=== PATIENT | male | born 1985 | race African-American/Black ===

== ENCOUNTER 2016-12-26 15:36 | Observation (INO) | payer OTHER ==
[2016-12-26] MEDS ORDERED: Sodium Chloride 0.9% 3,000 ML IV STA (16:16)
--- NOTE | 2016-12-26 16:29 | ED PDOC ---
HPI: General Adult Time Seen by Provider: 12/26/16 16:26 Chief Complaint (Nursing): Dizziness/Lightheaded Chief Complaint (Provider): headache/vomiting History Per: Patient (31 y/o male with post-epidural headache 6 days after epidural for back pain. Patient notes headache worse with sitting up and associated with vomiting. Denies any fevers/chills. Sent to ED by Dr. Garcia for bloodwork/fluids/pain medication and possible bloodpatch.) Past Medical History Reviewed: Historical Data, Nursing Documentation, Vital Signs Vital Signs: Last Vital Signs Temp 98.8 F 12/26/16 16:08 Pulse 76 12/26/16 16:08 Resp 20 12/26/16 16:08 BP 125/72 12/26/16 16:08 Pulse Ox 100 12/26/16 16:29 - Family History Family History: States: No Known Family Hx - Allergies Allergies/Adverse Reactions: Allergies Allergy/AdvReac Type Severity Reaction Status Date / Time No Known Allergies Allergy Verified 12/26/16 16:07 Review of Systems ROS Statement: Except As Marked, All Systems Reviewed And Found Negative Neurological: Positive for: Headache Physical Exam - Reviewed Nursing Documentation Reviewed: Yes Vital Signs Reviewed: Yes - Physical Exam Appears: Positive for: Well, Non-toxic, No Acute Distress Head Exam: Positive for: ATRAUMATIC, NORMAL INSPECTION, NORMOCEPHALIC Skin: Positive for: Normal Color, Warm, DRY Eye Exam: Positive for: EOMI, Normal appearance, PERRL ENT: Positive for: Normal ENT Inspection Neck: Positive for: Normal, Painless ROM Cardiovascular/Chest: Positive for: Regular Rate, Rhythm Respiratory: Positive for: CNT, Normal Breath Sounds Gastrointestinal/Abdominal: Positive for: Normal Exam, Bowel Sounds, Soft Back: Positive for: Normal Inspection Extremity: Positive for: Normal ROM Neurologic/Psych: Positive for: Alert, Oriented - Laboratory Results Result Diagrams: 12/26/16 16:35 12/26/16 17:20 - ECG O2 Sat by Pulse Oximetry: 100 - Progress ED Course And Treament: d/w Dr. Garcia upon patient's arrival plan of care. Will start on fluid hydration and pain medication. Will give one dose neurontin. Patient to be evaluated by Dr. Rizo or Dr. Garcia today. Zofran 4mg iv x 1 dose NS 3 liters given Neurontin 300 mg x 1 dose as d/w Dr. Garcia Morphine 2 mg iv x 1 dose as d/w Dr. Garcia seen by Dr. Garcia d/w Dr. Mccauley. Admitted to med/surg for bloodpatch tomorrow. Disposition - Clinical Impression Clinical Impression: Headache - Patient ED Disposition Is Patient to be Admitted: Yes - Disposition Disposition Time: 20:07 Condition: FAIR - Pt Status Changed To: Hospital Disposition Of: Inpatient - Admit Certification Admit to Inpatient:: After my assessment, the patient will require hospitalization for at least two midnights. This is because of the severity of symptoms shown, intensity of services needed, and/or the medical risk in this patient being treated as an outpatient.
[2016-12-26 17:33] LABS: BASO % 0.3 % (0.0-2.0); EOS # 0.1 K/uL (0.0-0.7); EOS % 0.9 % (0.0-4.0); HEMATOCRIT 47.4 % (35.0-51.0); LYMPH % 20.6 % (20.0-40.0); MEAN CORPUSCULAR HEMOGLOBIN 30.6 pg (27.0-31.0); MEAN CORPUSCULAR HGB CONC 33.6 g/dL (33.0-37.0); MEAN PLATELET VOLUME 7.6 fl (7.2-11.7); MONO # 1.1 K/uL (0.0-0.8); NEUT # 6.6 K/uL (1.8-7.0); NEUT % 67.2 % (50.0-75.0); NRBC % 0.1 % (0.0-0.0); RED CELL DISTRIBUTION WIDTH 13.5 % (11.5-14.5); WHITE BLOOD COUNT 9.7 K/uL (4.8-10.8)
[2016-12-26 17:50] LABS: BLOOD UREA NITROGEN 17 mg/dl (9-20); CARBON DIOXIDE 26 mmol/L (22-30); CHLORIDE 100 mmol/L (98-107); GFR AFRICAN-AMERICAN > 60; GLUCOSE,RANDOM 86 mg/dL (75-110); POTASSIUM 4.1 MMOL/L (3.6-5.0); SODIUM 140 mmol/l (132-148)
[2016-12-26 18:11] LABS: PARTIAL THROMBOPLASTIN TIME 27.1 Seconds (25.6-37.1)
--- NOTE | 2016-12-26 19:52 | CP.PCM.CON ---
History of Present Illness - History of Present Illness History of Present Illness: Patient is s/p cervical epidural steroid injection last Friday and now has a likely post-dura puncture headache. Headache is positional, and associated with nausea and photophobia. Despite fluid therapy and caffeine treatment at home, the pain has continued to be severe. Since being in the ER, morphine and Zofran helped but he still cannot tolerate being upright. When laying supine, he has no symptoms. R/B/A of conservative therapy vs epidural blood patch was discussed with the patient, and patient elected for intervention. Past Patient History - Past Social History Smoking Status: Never Smoked - MUSCULOSKELETAL/RHEUMATOLOGICAL Hx Back Pain: Yes - GASTROINTESTINAL Hx Gastritis: Yes - GENITOURINARY/GYNECOLOGICAL Hx Genitourinary Disorders: No - PSYCHIATRIC Hx Psychophysiologic Disorder: No Hx Substance Use: No - SURGICAL HISTORY Hx Surgeries: No - ANESTHESIA Hx Anesthesia: No Meds Allergies/Adverse Reactions: Allergies Allergy/AdvReac Type Severity Reaction Status Date / Time No Known Allergies Allergy Verified 12/26/16 16:07 Physical Exam - Constitutional Appears: Non-toxic - Neck Exam Neck exam: Positive for: Tenderness - Respiratory Exam Respiratory Exam: NORMAL BREATHING PATTERN - Cardiovascular Exam Cardiovascular Exam: REGULAR RHYTHM - GI/Abdominal Exam GI & Abdominal Exam: Normal Bowel Sounds Results - Vital Signs Recent Vital Signs: Last Vital Signs Temp 98.8 F 12/26/16 16:08 Pulse 76 12/26/16 16:08 Resp 20 12/26/16 16:08 BP 125/72 12/26/16 16:08 Pulse Ox 100 12/26/16 16:29 - Labs Result Diagrams: 12/26/16 16:35 12/26/16 17:20 Labs: Laboratory Results - last 24 hr 12/26/16 12/26/16 12/26/16 16:35 17:20 17:20 WBC 9.7 RBC 5.20 Hgb 15.9 Hct 47.4 MCV 91.0 MCH 30.6 MCHC 33.6 RDW 13.5 Plt Count 236 MPV 7.6 Neut % (Auto) 67.2 Lymph % (Auto) 20.6 [place] % (Auto) 11.0 H Eos % (Auto) 0.9 Baso % (Auto) 0.3 Neut # 6.6 Lymph # 2.0 [place] # 1.1 H Eos # 0.1 Baso # 0.0 PT 12.7 INR 1.1 APTT 27.1 Sodium 140 Potassium 4.1 Chloride 100 Carbon Dioxide 26 Anion Gap 18 BUN 17 Creatinine 0.7 L Est GFR ( Amer) > 60 Est GFR (Non-Af Amer) > 60 Random Glucose 86 Calcium 10.0 Assessment & Plan - Assessment and Plan (Free Text) Assessment: 31 yo man w/ likely post-dura puncture headache, he's s/p cervical epidural steroid injection last Friday. He has failed conservative therapy at home and will undergo blood patch intervention tomorrow. Labs are WNL, symptoms are purely positional, and MS is at baseline. He is non-toxic and there is no need for infectious workup unless the clinical picture changes. - hold any anticoagulation - IV fluid, 125cc/hr - patient doesn't need to be NPO - for likely cervical epidural blood patch under fluoro guidance in AM
--- NOTE | 2016-12-26 20:29 | CP.PCM.HP ---
History of Present Illness - History of Present Illness History of Present Illness: PCP: Maryan Bennett MD Anaesthiologist: April Church Chief Complaint: Headache/vomiting HPI: 31 years old male with hx of upper back pain due to pinched nerve now Post Operation day 5 of Cervical epidural. He comes with 6 days of persistent headaches worse of sitting up, vomiting and dizziness, lightheadedness. No fever , cough, SOB, chest pain palpitation, dysuria nor diarrhea. He was sent to the ED by Dr Garcia for further evaluation and management. after treatment with Analgesics and antiemetics in the ED the patient's headache persists. PMH: Pinched nerve Cervical Spine; GERD; Gastritis PSH: Cervical Epidural 02/03 SH: Never smoked; no alcohol; no illegal drugs; Live with family; works in [employer] FH: No known family History Allergies: NKDA Present on Admission - Present on Admission Any Indicators Present on Admission: No History of DVT/PE: No History of Uncontrolled Diabetes: No Urinary Catheter: No Decubitus Ulcer Present: No Review of Systems - Constitutional Constitutional: Headache. absent: Anorexia, Chills, Fatigue, Fever, Lethargy, Weakness - EENT Eyes: Requires Corrective Lenses. absent: Blurred Vision, Diplopia, Floaters, Sees Flashes Ears: absent: Decreased Hearing, Ear Discharge, Ear Pain, Tinnitus Nose/Mouth/Throat: absent: Epistaxis, Nasal Congestion, Nasal Discharge - Cardiovascular Cardiovascular: absent: Chest Pain, Dyspnea, Edema - Respiratory Respiratory: absent: Cough, Dyspnea, Wheezing, Chest Congestion - Gastrointestinal Gastrointestinal: Nausea, Vomiting. absent: Abdominal Pain, Constipation, Diarrhea - Genitourinary Genitourinary: absent: Dysuria, Flank Pain, Hematuria, Pyuria - Musculoskeletal Musculoskeletal: absent: Arthralgias, Back Pain, Muscle Weakness, Myalgias - Integumentary Integumentary: absent: Pruritus, Rash, Skin Ulcer, Sores, Striae, Swelling - Neurological Neurological: Dizziness, Headaches. absent: Focal Weakness, Frequent Falls, Loss of Vision - Psychiatric Psychiatric: absent: Anxiety, Depression, Panic Attacks - Endocrine Endocrine: absent: Palpitations, Polydipsia, Polyphagia, Polyuria - Hematologic/Lymphatic Hematologic: absent: Easy Bleeding, Easy Bruising Past Patient History - Past Social History Smoking Status: Never Smoked Chewing Tobacco Use: No Cigar Use: No Alcohol: None Drugs: Denies Home Situation {Lives}: With Family - CARDIAC Hx Cardiac Disorders: No - PULMONARY Hx Respiratory Disorders: No - NEUROLOGICAL Hx Neurological Disorder: No - HEENT Hx HEENT Problems: No - RENAL Hx Chronic Kidney Disease: No - HEMATOLOGICAL/ONCOLOGICAL Hx Blood Disorders: No - INTEGUMENTARY Hx Dermatological Problems: No - MUSCULOSKELETAL/RHEUMATOLOGICAL Hx Back Pain: Yes - GASTROINTESTINAL Hx Gastritis: Yes Hx Gastroesophageal Reflux: Yes - GENITOURINARY/GYNECOLOGICAL Hx Genitourinary Disorders: No - PSYCHIATRIC Hx Psychophysiologic Disorder: No Hx Substance Use: No - SURGICAL HISTORY Hx Surgeries: Yes Other/Comment: Cervical epidural - ANESTHESIA Hx Anesthesia: No Meds Allergies/Adverse Reactions: Allergies Allergy/AdvReac Type Severity Reaction Status Date / Time No Known Allergies Allergy Verified 12/26/16 16:07 Physical Exam - Constitutional Appears: No Acute Distress - Head Exam Head Exam: ATRAUMATIC, NORMAL INSPECTION, NORMOCEPHALIC - Eye Exam Eye Exam: EOMI, Normal appearance Pupil Exam: NORMAL ACCOMODATION, PERRL - ENT Exam ENT Exam: Mucous Membranes Moist, Normal Exam, Normal External Ear Exam, Normal Oropharynx - Neck Exam Neck exam: Positive for: Full Rom, Normal Inspection. Negative for: Lymphadenopathy, Tenderness - Respiratory Exam Respiratory Exam: Clear to Auscultation Bilateral. absent: Rales, Rhonchi, Wheezes - Cardiovascular Exam Cardiovascular Exam: REGULAR RHYTHM, RRR, +S1, +S2. absent: Gallop, JVD - GI/Abdominal Exam GI & Abdominal Exam: Normal Bowel Sounds, Soft. absent: Mass, Organomegaly, Tenderness - Rectal Exam Rectal Exam: Deferred - Extremities Exam Extremities exam: Positive for: full ROM, normal inspection. Negative for: calf tenderness, joint swelling, pedal edema - Back Exam Back exam: NORMAL INSPECTION. absent: CVA tenderness (L), CVA tenderness (R) - Neurological Exam Neurological exam: Alert, CN II-XII Intact, Oriented x3, Reflexes Normal - Psychiatric Exam Psychiatric exam: Normal Affect, Normal Mood - Skin Skin Exam: Dry, Intact, Normal Color, Warm Results - Vital Signs Recent Vital Signs: Last Vital Signs Temp 98.4 F 12/26/16 20:07 Pulse 59 L 12/26/16 20:07 Resp 17 12/26/16 20:07 BP 130/87 12/26/16 20:07 Pulse Ox 100 12/26/16 20:07 - Labs Result Diagrams: 12/26/16 16:35 12/26/16 17:20 Labs: Laboratory Results - last 24 hr 12/26/16 12/26/16 12/26/16 16:35 17:20 17:20 WBC 9.7 RBC 5.20 Hgb 15.9 Hct 47.4 MCV 91.0 MCH 30.6 MCHC 33.6 RDW 13.5 Plt Count 236 MPV 7.6 Neut % (Auto) 67.2 Lymph % (Auto) 20.6 [place] % (Auto) 11.0 H Eos % (Auto) 0.9 Baso % (Auto) 0.3 Neut # 6.6 Lymph # 2.0 [place] # 1.1 H Eos # 0.1 Baso # 0.0 PT 12.7 INR 1.1 APTT 27.1 Sodium 140 Potassium 4.1 Chloride 100 Carbon Dioxide 26 Anion Gap 18 BUN 17 Creatinine 0.7 L Est GFR ( Amer) > 60 Est GFR (Non-Af Amer) > 60 Random Glucose 86 Calcium 10.0 Assessment & Plan - Assessment and Plan (Free Text) Assessment: #. Post Epidural Headaches #. GERD Plan: 31 years old male with hx of upper back pain due to pinched nerve now Post Operation day 5 of Cervical epidural, comes with 6 days of persistent headaches worse of sitting up, vomiting and dizziness, lightheadedness starting after epidural. #. Post epidural Headaches - Consult Dr Church, April Anesthesiologist - NPO after midnight for possible intervention - Zofran - Morphine #. GERD with Gastritis - Pepcid #. DVT prophylaxis with SCD #. Code status: Full - Date & Time Date: 12/26/16 Time: 20:29
[2016-12-27 00:38] VITALS: O2SAT 98
[2016-12-27 08:16] VITALS: BP 115/74; PULSE 64; RESP 18; TEMP 97.7
--- NOTE | 2016-12-27 11:38 | CP.PCM.DIS ---
Provider - Provider Date of Admission: 12/26/16 20:08 Attending physician: Cali Mccauley Primary care physician: Dr Bennett Consults: Ansethesia: Dr Garcia Time Spent in preparation of Discharge (in minutes): 20 Diagnosis - Discharge Diagnosis (1) Post-dural puncture headache Status: Acute Hospital Course - Lab Results Lab Results: Most Recent Lab Values WBC 9.7 K/uL (4.8-10.8) 12/26/16 16:35 RBC 5.20 Mil/uL (4.40-5.90) 12/26/16 16:35 Hgb 15.9 g/dL (12.0-18.0) 12/26/16 16:35 Hct 47.4 % (35.0-51.0) 12/26/16 16:35 MCV 91.0 fl (80.0-94.0) 12/26/16 16:35 MCH 30.6 pg (27.0-31.0) 12/26/16 16:35 MCHC 33.6 g/dL (33.0-37.0) 12/26/16 16:35 RDW 13.5 % (11.5-14.5) 12/26/16 16:35 Plt Count 236 K/uL (130-400) 12/26/16 16:35 MPV 7.6 fl (7.2-11.7) 12/26/16 16:35 Neut % (Auto) 67.2 % (50.0-75.0) 12/26/16 16:35 Lymph % (Auto) 20.6 % (20.0-40.0) 12/26/16 16:35 Bartholomew % (Auto) 11.0 % (0.0-10.0) H 12/26/16 16:35 Eos % (Auto) 0.9 % (0.0-4.0) 12/26/16 16:35 Baso % (Auto) 0.3 % (0.0-2.0) 12/26/16 16:35 Neut # 6.6 K/uL (1.8-7.0) 12/26/16 16:35 Lymph # 2.0 K/uL (1.0-4.3) 12/26/16 16:35 Bartholomew # 1.1 K/uL (0.0-0.8) H 12/26/16 16:35 Eos # 0.1 K/uL (0.0-0.7) 12/26/16 16:35 Baso # 0.0 K/uL (0.0-0.2) 12/26/16 16:35 PT 12.7 Seconds (9.8-13.1) 12/26/16 17:20 INR 1.1 (0.9-1.2) 12/26/16 17:20 APTT 27.1 Seconds (25.6-37.1) 12/26/16 17:20 Sodium 140 mmol/l (132-148) 12/26/16 17:20 Potassium 4.1 MMOL/L (3.6-5.0) 12/26/16 17:20 Chloride 100 mmol/L (98-107) 12/26/16 17:20 Carbon Dioxide 26 mmol/L (22-30) 12/26/16 17:20 Anion Gap 18 (10-20) 12/26/16 17:20 BUN 17 mg/dl (9-20) 12/26/16 17:20 Creatinine 0.7 mg/dL (0.8-1.5) L 12/26/16 17:20 Est GFR ( Amer) > 60 12/26/16 17:20 Est GFR (Non-Af Amer) > 60 12/26/16 17:20 Random Glucose 86 mg/dL (75-110) 12/26/16 17:20 Calcium 10.0 mg/dL (8.4-10.2) 12/26/16 17:20 - Hospital Course Hospital Course: 31 y/o gent with hx of recent Cervical epidural steroid injection came in because of headache and nausea. Pt was observed in Med Surg . Dr Garcia ( Anesthesia ) was consulted and - rec IVF hydration, Pain mgt and possible epidural blood patch is symptoms do not improve. Patient was started on IVF hydration, Morphine IV prn and Neurontin. His symptoms improved. Today pt is headache free, denies N/V and is seen ambulating around the unit. . Discharge Exam - Head Exam Head Exam: ATRAUMATIC, NORMAL INSPECTION, NORMOCEPHALIC - Eye Exam Eye Exam: EOMI, Normal appearance, PERRL Pupil Exam: NORMAL ACCOMODATION - ENT Exam ENT Exam: Mucous Membranes Moist, Normal External Ear Exam - Neck Exam Neck exam: Full Rom Additional comments: no nuchal rigidity - Respiratory Exam Respiratory Exam: Rales. absent: Respiratory Distress - Cardiovascular Exam Cardiovascular Exam: REGULAR RHYTHM, +S1, +S2 - GI/Abdominal Exam GI & Abdominal Exam: Normal Bowel Sounds, Soft. absent: Tenderness - Extremities Exam Extremities exam: full ROM, normal capillary refill, normal inspection - Back Exam Back exam: NORMAL INSPECTION. absent: CVA tenderness (L), CVA tenderness (R) - Neurological Exam Neurological exam: Alert, CN II-XII Intact, Normal Gait, Oriented x3, Reflexes Normal - Psychiatric Exam Psychiatric exam: Normal Affect, Normal Mood - Skin Skin Exam: Dry, Normal Color, Warm Discharge Plan - Discharge Medications Prescriptions: Ondansetron [Zofran] 4 mg PO Q8H PRN #1 tab PRN Reason: Nausea/Vomiting - Follow Up Plan Condition: GOOD Disposition: HOME/ ROUTINE Instructions: Gabapentin (By mouth), Ondansetron (By mouth), Acute Headache (DC ) Additional Instructions: Return to ER for headache, nausea, blurred vision or photosensitivity ff up with PMD in 1-2 wks Referrals: April Garcia MD [Staff Provider] - Maryan Bennett MD [Medical Doctor] -
== END 2016-12-27 12:30 | disposition home or self-care (01) ==
LOC: H.ER 15:36 → H.ERHOLD 20:08 → H.MEDSURG1 21:10
PROVIDERS: ADMIT Internal Medicine; ATTEND Internal Medicine
DX: G97.1 Other reaction to spinal and lumbar puncture (principal); K21.9 Gastro-esophageal reflux disease without esophagitis